=== PATIENT | male | born 1975 | race Caucasian/White ===

== ENCOUNTER 2017-11-02 21:49 | Emergency (ER) | payer BC, OTHER ==
[2017-11-02] MEDS ORDERED: Lidocaine 1% 20 ML MDV ONE (22:14)
== END 2017-11-02 23:04 | disposition home or self-care (01) ==
LOC: SCSER 21:49
DX: S91.201A Unspecified open wound of right great toe with damage to nail, initial encounter (principal); K21.9 Gastro-esophageal reflux disease without esophagitis; Z87.891 Personal history of nicotine dependence; X58.XXXA Exposure to other specified factors, initial encounter
CPT/HCPCS: 11760; J2001

== ENCOUNTER 2021-10-21 14:13 | Outpatient (CLI) | payer BC | END 2021-10-21 14:14 | disposition home or self-care (01) | LOC: BICMAMMO 14:13 | PROVIDERS: ATTEND Family Medicine | DX: N63.15 Unspecified lump in the right breast, overlapping quadrants (principal) | CPT/HCPCS: 77066; G0279 ==

== ENCOUNTER → 2021-10-25 | Day surgery (SDC) | payer BC | LOC: BICULT 12:43 | PROVIDERS: ATTEND Family Medicine | PROC: 0H9T3ZX Drainage of Right Breast, Percutaneous Approach, Diagnostic (ICD-10-PCS; principal; 2021-10-25) | DX: N63.15 Unspecified lump in the right breast, overlapping quadrants (principal) | CPT/HCPCS: 19083; 88305; 88341; 88342 ==

== ENCOUNTER 2024-06-03 08:12 | Outpatient (CLI) | payer BC | END 2024-06-03 08:13 | disposition home or self-care (01) | LOC: ULT 08:12 | PROVIDERS: ATTEND Student in an Organized Health Care Education/Training Program | DX: R74.8 Abnormal levels of other serum enzymes (principal); R16.0 Hepatomegaly, not elsewhere classified; K76.0 Fatty (change of) liver, not elsewhere classified; K82.8 Other specified diseases of gallbladder | CPT/HCPCS: 76705 ==